=== PATIENT | male | born 1975 | race Caucasian/White ===

== ENCOUNTER 2019-11-17 09:35 | Observation (INO) ==
[2019-11-17] MEDS ORDERED: NS 1000 ML 1,000 ML IV ONE (10:32)
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
[2019-11-17 11:04] LABS: BASOPHILS % (AUTO) 0.3 % (0.2-1.0); EOSINOPHILS % (AUTO) 0.4 % (0.9-2.9); HEMATOCRIT 34.2 % (42.0-54.0); HEMOGLOBIN 11.3 g/dL (13.5-18.0); LYMPHOCYTES # (AUTO) 1.4 X10^3/uL (1.3-2.9); LYMPHOCYTES % (AUTO) 10.4 % (21.0-51.0); MEAN CORPUSCULAR HEMOGLOBIN 27.3 pg (27.0-34.0); MEAN CORPUSCULAR HGB CONC 33.1 g/dL (33.0-35.0); MEAN CORPUSCULAR VOLUME 82.5 fL (80.0-100.0); MEAN PLATELET VOLUME 6.9 fL (7.4-11.0); MONOCYTES # (AUTO) 0.9 x10^3/uL (0.3-0.8); NEUTROPHILS # (AUTO) 10.6 x10^3/uL (2.2-4.8); NEUTROPHILS % (AUTO) 81.9 % (42.0-75.0); PLATELET COUNT 690 X10^3/uL (150.0-450.0); RED BLOOD COUNT 4.14 X10^6/uL (4.7-6.0); RED CELL DISTRIBUTION WIDTH 14.7 % (11.6-16.5)
[2019-11-17] MEDS ORDERED: NS 1000 ML 1,000 ML ONE (11:06)
[2019-11-17 11:19] LABS: ALANINE AMINOTRANSFERASE 27 Units/L (12-78); ALBUMIN 3.7 g/dL (3.4-5.0); ALKALINE PHOSPHATASE 76 Units/L (46-116); ASPARTATE AMINO TRANSFERASE 14 Units/L (15-37); BLOOD UREA NITROGEN 19 mg/dL (7-18); CALCIUM 9.2 mg/dL (8.5-10.1); CARBON DIOXIDE 25.3 mmol/L (21-32); CHLORIDE 101 mmol/L (98-107); COR NA(FOR HYPERGLY) 137 mmol/L (136-145); CREATININE 0.77 mg/dL (0.70-1.30); SODIUM 137 mmol/L (136-145); TOTAL PROTEIN 7.5 g/dL (6.4-8.2); eGFR NON BLACK RACES > 60 (>60)
--- NOTE | 2019-11-17 11:20 | RAD ---
HISTORYTOTAL RT HIP SX X 1 WK FALL LAST NIGHTSTUDYHIP-[id number]/04/2019 radiographTECHNIQUEAP pelvis and two-view right hipFINDINGSStatus post revision right total hip arthroplasty with long stem femoral component and cerclage wire. Postoperative change with swelling and skin dalia. Fracture through the lateral cortex of the right subtrochanteric femur. Bones are osteopenic.IMPRESSIONFracture through the lateral cortex of the right subtrochanteric femur may be postoperative or posttraumatic.Electronically signed by: Jorje Gupta (Nov 17, 2019 11:19:53)
[2019-11-17 11:29] LABS: PLATELET MORPHOLOGY COMMENT NORMAL (NORMAL)
[2019-11-17] MEDS ORDERED: ZOSYN VIAL 4.5 GRAMS 4.5 G in NS 100 ML IV + SPIKE MINIBAG* 100 ML IV SCH (11:56)
[2019-11-17] MEDS ORDERED: VANCOMYCIN IV *PREMIX 1 G/200 ML BAG 1 G/200 ML PIGGYBACK IV ONE (11:56)
[2019-11-17] MEDS ORDERED: ZOSYN VIAL 4.5 GRAMS IV ONE (12:41)
[2019-11-17] MEDS ORDERED: VANCOMYCIN HCL ONE (12:41)
[2019-11-17] MEDS ORDERED: NS 250 ML IV 250 ML IV ONE (12:42)
[2019-11-17] MEDS ORDERED: NS 100 ML IV 100 ML IV ONE (12:42)
--- NOTE | 2019-11-17 14:35 | CT ---
HISTORYDYSPHAGIASTUDYBRAIN W/O [id number] images of the head were obtained without IV contrast. Automatic exposure control was utilized.FINDINGSNo acute intraparenchymal hemorrhage or mass can be identified. No extra-axial fluid collections are seen. No alteration in the attenuation of the brain parenchyma can be identified to suggest acute or subacute ischemic change. The ventricular system is symmetric and nondilated. The extracranial structures are grossly unremarkable.IMPRESSIONNo acute intracranial abnormality.Electronically signed by: NAHUM COPPOLA (Nov 17, 2019 14:35:16)
[2019-11-17] MEDS ORDERED: ZOSYN VIAL 3.375 GRAMS 3.375 G in NS 100 ML IV + SPIKE MINIBAG* 100 ML IV SCH (16:00)
[2019-11-17] MEDS ORDERED: ROXICODONE TAB 5 MG PO PRN (17:22)
[2019-11-17] MEDS ORDERED: OxyCONTIN CR 10 MG 12-HR PO ONE (17:24)
[2019-11-17] MEDS ORDERED: ZOFRAN INJ 4 MG VIAL IVP PRN (19:36)
[2019-11-17] MEDS ORDERED: VANCOMYCIN IV *PREMIX 1 G/200 ML BAG 1 G/200 ML PIGGYBACK IV SCH (22:00)
[2019-11-17] MEDS: VANCOMYCIN IV *PREMIX 1 G/200 ML BAG 1 G/200 ML PIGGYBACK IV SCH (22:00)
[2019-11-17] MEDS: ZOSYN VIAL 3.375 GRAMS 3.375 G in NS 100 ML IV + SPIKE MINIBAG* 100 ML IV SCH (22:30)
[2019-11-18 02:41] LABS: APPEARANCE,URINE CLOUDY (CLEAR); BILIRUBIN,URINE NEGATIVE (NEGATIVE); BLOOD/HEMOGLOBIN,URINE NEGATIVE (NEGATIVE); COLOR,URINE YELLOW (YELLOW); GLUCOSE, URINE NEGATIVE (NEGATIVE); KETONES,URINE 4+ (NEGATIVE); LEUKOCYTE ESTERASE ,URINE NEGATIVE (NEGATIVE); NITRITES,URINE NEGATIVE (NEGATIVE); PROTEIN,URINE NEGATIVE (NEGATIVE); UROBILINOGEN,URINE NORMAL (NORMAL)
[2019-11-18] MEDS: VANCOMYCIN IV *PREMIX 1 G/200 ML BAG 1 G/200 ML PIGGYBACK IV SCH ×2 (05:00→13:41)
[2019-11-18] MEDS: ZOSYN VIAL 3.375 GRAMS 3.375 G in NS 100 ML IV + SPIKE MINIBAG* 100 ML IV SCH ×2 (06:15→16:37)
[2019-11-18 06:30] LABS: BASOPHILS % (AUTO) 0.2 % (0.2-1.0); EOSINOPHILS # (AUTO) 0.1 x10^3/uL (0.0-0.2); EOSINOPHILS % (AUTO) 0.7 % (0.9-2.9); HEMATOCRIT 27.6 % (42.0-54.0); HEMOGLOBIN 9.4 g/dL (13.5-18.0); LYMPHOCYTES % (AUTO) 14.4 % (21.0-51.0); MEAN CORPUSCULAR HGB CONC 33.8 g/dL (33.0-35.0); MEAN CORPUSCULAR VOLUME 82.7 fL (80.0-100.0); MONOCYTES % (AUTO) 6.7 % (0.0-13.0); NEUTROPHILS # (AUTO) 11.1 x10^3/uL (2.2-4.8); PLATELET COUNT 568 X10^3/uL (150.0-450.0); RED BLOOD COUNT 3.34 X10^6/uL (4.7-6.0); RED CELL DISTRIBUTION WIDTH 14.8 % (11.6-16.5); WHITE BLOOD COUNT 14.3 X10^3/uL (3.6-10.0)
[2019-11-18 06:39] LABS: ALANINE AMINOTRANSFERASE 23 Units/L (12-78); ALKALINE PHOSPHATASE 62 Units/L (46-116); ASPARTATE AMINO TRANSFERASE 8 Units/L (15-37); BLOOD UREA NITROGEN 18 mg/dL (7-18); CALCIUM 8.5 mg/dL (8.5-10.1); CARBON DIOXIDE 25.1 mmol/L (21-32); CHLORIDE 103 mmol/L (98-107); COR CA(FOR HYPOALB) 9.3 mg/dL (8.5-10.1); SODIUM 136 mmol/L (136-145); TOTAL PROTEIN 6.3 g/dL (6.4-8.2); eGFR NON BLACK RACES > 60 (>60)
[2019-11-18] MEDS ORDERED: ASPIRIN 81 MG CHEWTAB ONE (08:18)
[2019-11-18] MEDS ORDERED: ASPIRIN EC 81 MG PO SCH (09:00)
[2019-11-18] MEDS ORDERED: COLACE CAP 100 MG PO SCH (09:00)
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
[2019-11-18] MEDS ORDERED: NS 1000 ML 1,000 ML ONE (12:05)
[2019-11-18] MEDS: NS 1000 ML 1,000 ML IV SCH (12:17)
--- NOTE | 2019-11-18 12:17 | RAD ---
HISTORYAMS, DYSPHAGIASTUDYCHEST, 1 VIEWCOMPARISONNoneFINDINGSThe heart is borderline enlarged. The pulmonary vessels are normal. No consolidation or effusion is seen. The bones are intact.IMPRESSIONBorderline cardiomegaly with no acute pulmonary abnormality.Electronically signed by: LORI PHELPS (Nov 18, 2019 12:17:15)
[2019-11-18 13:04] LABS: CREATININE 0.8 mg/dL (0.70-1.30); VANCOMYCIN,TROUGH 10.9 ug/mL (15-20)
[2019-11-18] MEDS ORDERED: VANCOMYCIN 1 GRAM PREMIX (ADDVANTAGE) 250 ML IV ONE (13:27)
[2019-11-18 14:47] VITALS: BMI 29.3
[2019-11-18] MEDS: LOVENOX INJ 40 MG SYR SC SCH (17:15)
[2019-11-19] MEDS: NS 1000 ML 1,000 ML IV SCH ×2 (00:28→06:31)
[2019-11-19 06:22] LABS: BASOPHILS % (AUTO) 0.3 % (0.2-1.0); EOSINOPHILS # (AUTO) 0.1 x10^3/uL (0.0-0.2); EOSINOPHILS % (AUTO) 0.6 % (0.9-2.9); HEMATOCRIT 27.5 % (42.0-54.0); HEMOGLOBIN 9.3 g/dL (13.5-18.0); LYMPHOCYTES # (AUTO) 1.8 X10^3/uL (1.3-2.9); LYMPHOCYTES % (AUTO) 13.9 % (21.0-51.0); MEAN CORPUSCULAR HEMOGLOBIN 28.2 pg (27.0-34.0); MEAN CORPUSCULAR HGB CONC 33.7 g/dL (33.0-35.0); MEAN CORPUSCULAR VOLUME 83.9 fL (80.0-100.0); MEAN PLATELET VOLUME 7.6 fL (7.4-11.0); MONOCYTES # (AUTO) 0.7 x10^3/uL (0.3-0.8); MONOCYTES % (AUTO) 5.5 % (0.0-13.0); NEUTROPHILS # (AUTO) 10.5 x10^3/uL (2.2-4.8); NEUTROPHILS % (AUTO) 79.7 % (42.0-75.0); PLATELET COUNT 504 X10^3/uL (150.0-450.0); RED BLOOD COUNT 3.28 X10^6/uL (4.7-6.0); RED CELL DISTRIBUTION WIDTH 14.8 % (11.6-16.5); WHITE BLOOD COUNT 13.2 X10^3/uL (3.6-10.0)
[2019-11-19 06:31] LABS: ALANINE AMINOTRANSFERASE 21 Units/L (12-78); ALBUMIN 2.9 g/dL (3.4-5.0); ALKALINE PHOSPHATASE 59 Units/L (46-116); ASPARTATE AMINO TRANSFERASE 12 Units/L (15-37); BLOOD UREA NITROGEN 16 mg/dL (7-18); CALCIUM 8.4 mg/dL (8.5-10.1); CHLORIDE 104 mmol/L (98-107); COR CA(FOR HYPOALB) 9.3 mg/dL (8.5-10.1); CREATININE 0.61 mg/dL (0.70-1.30); SODIUM 138 mmol/L (136-145); TOTAL PROTEIN 6.2 g/dL (6.4-8.2); eGFR NON BLACK RACES > 60 (>60)
[2019-11-19] MEDS: LOVENOX INJ 40 MG SYR SC SCH (09:23)
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
[2019-11-19 12:29] VITALS: BP 127/71
== END 2019-11-19 13:00 | disposition short-term general hospital (02) ==
LOC: MED/SURG 09:35 → ER 09:35 → MED/SURG 17:00
PROVIDERS: ADMIT Internal Medicine; ATTEND Internal Medicine
DX: Y92.9 Unspecified place or not applicable; S73.004A Unspecified dislocation of right hip, initial encounter; X58.XXXA Exposure to other specified factors, initial encounter; Z96.641 Presence of right artificial hip joint; R63.4 Abnormal weight loss; R26.2 Difficulty in walking, not elsewhere classified; R41.82 Altered mental status, unspecified; R13.19 Other dysphagia; E86.0 Dehydration; R53.1 Weakness; Z20.828 Contact with and (suspected) exposure to other viral communicable diseases